=== PATIENT | female | born 1945 | race American Indian/Alaskan Native ===

== ENCOUNTER 2018-08-16 17:07 | Inpatient (IN) | payer MEDICARE ==
[2018-08-16 17:33] VITALS: BMI 32.3
[2018-08-16] MEDS ORDERED: Sodium Chloride 0.9% 500 ML IV STA (18:18)
[2018-08-16 18:52] LABS: BASO # 0.06 K/mm3 (0.0-2.0); BASO % 0.6 % (0.0-3.0); EOS # 0.7 (0.0-0.7); EOS % 7.6 % (1.5-5.0); LYMPH # 1.3 (1.2-3.4); LYMPH % 13.1 % (22.0-35.0); MEAN CELL VOLUME 81.3 fl (80.0-105.0); MEAN CORPUSCULAR HEMOGLOBIN 26.7 pg (25.0-35.0); MEAN CORPUSCULAR HGB CONC 32.9 g/dl (31.0-37.0); MEAN PLATELET VOLUME 8.3 fl (7.0-11.0); MONO # 0.4 (0.1-0.6); MONO % 3.6 % (1.0-6.0); RBC 3.74 10^6/uL (3.5-6.1); RED CELL DISTRIBUTION WIDTH 12.9 % (11.5-14.5); WHITE BLOOD COUNT 9.7 10^3/uL (4.5-11.0)
[2018-08-16 18:54] LABS: INR 1.15; PARTIAL THROMBOPLASTIN TIME 36.9 Seconds (26.9-38.3); PROTHROMBIN TIME 12.8 SECONDS (9.4-12.5)
[2018-08-16] MEDS ORDERED: Iohexol 240 (50 ml) ONE (18:54)
[2018-08-16 18:58] LABS: ALBUMIN 3.9 g/dL (3.0-4.8); ALT/SGPT 32 U/L (7-56); AST/SGOT 33 U/L (14-36); BLOOD UREA NITROGEN 33 mg/dL (7-21); CALCIUM 7.7 mg/dL (8.4-10.5); GFR NON-AFRICAN AMERICAN 13; LIPASE 227 U/L (23-300)
[2018-08-16 19:09] LABS: TROPONIN I < 0.01 ng/mL
--- NOTE | 2018-08-16 19:31 | ED PDOC ---
Arrival/HPI <Frank Torres - Last Filed: 08/17/18 00:07> - General Historian: Patient - History of Present Illness Narrative History of Present Illness (Text): 08/16/18 19:28 73 yo F w/ PMH of diabetes, asthma, hiatal hernia, CVA with residual L sided weakness, presents to the ER complaining of nausea, vomiting, associated with intermittent non-radiating pain to the epigastric area, present only when the patient feels she is about to vomit. 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 She adds that she has a h/o "bad kidneys," she follow up with a toll service observer, but is not on dialysis. Denies any fevers, chills, chest pain, shortness of breath, back pain, urinary symptoms, black stools, bloody stools, constipation, diarrhea, prior GI bleed. PMD Leonid Anderson <Melani Forman - Last Filed: 08/17/18 00:22> - General Chief Complaint: Abdominal Pain Time Seen by Provider: 08/16/18 17:09 Past Medical History - Infectious Disease Hx of Infectious Diseases: None - Cardiac Hx Cardiac Disorders: Yes Hx Hypertension: Yes - Pulmonary Hx Respiratory Disorders: No - Neurological Hx Neurological Disorder: Yes HX Cerebrovascular Accident: Yes (Left Sided Paralysis) - HEENT Hx HEENT Disorder: No - Renal Hx Renal Disorder: No - Endocrine/Metabolic Hx Endocrine Disorders: Yes Hx Diabetes Mellitus Type 2: Yes - Hematological/Oncological Hx Blood Disorders: No - Integumentary Hx Dermatological Disorder: No - Musculoskeletal/Rheumatological Hx Musculoskeletal Disorders: No - Gastrointestinal Hx Gastrointestinal Disorders: No - Genitourinary/Gynecological Hx Genitourinary Disorders: No - Psychiatric Hx Psychophysiologic Disorder: No Hx Substance Use: No <Melani Forman - Last Filed: 08/17/18 00:22> Family/Social History Family/Social History: No Known Family HX Smoking Status: Never Smoked Hx Alcohol Use: No Hx Substance Use: No <Melani Forman - Last Filed: 08/17/18 00:22> Allergies/Home Meds <Frank Torres - Last Filed: 08/17/18 00:07> <Melani Forman - Last Filed: 08/17/18 00:22> Allergies/Adverse Reactions: Allergies No Known Allergies Allergy (Verified 08/16/18 17:34) Review of Systems - Review of Systems Constitutional: absent: Fatigue, Fevers Respiratory: absent: SOB, Cough Cardiovascular: absent: Chest Pain, Palpitations, Edema Gastrointestinal: Abdominal Pain, Nausea, Vomiting. absent: Constipation, Diarrhea Genitourinary Female: absent: Dysuria, Frequency, Hematuria Musculoskeletal: absent: Arthralgias, Back Pain, Neck Pain Skin: Rash (+diffuse itchy rash x 1 week). absent: Pruritis, Skin Lesions Neurological: absent: Headache, Dizziness <Melani Forman - Last Filed: 08/17/18 00:22> Physical Exam Vital Signs Temp Pulse Resp BP Pulse Ox 08/16/18 22:00 71 18 148/75 96 08/16/18 19:22 75 18 154/82 H 96 08/16/18 17:34 98.3 F 82 18 175/82 H 96 <Frank Torres - Last Filed: 08/17/18 00:07> Vital Signs Temp Pulse Resp BP Pulse Ox 08/16/18 19:22 75 18 154/82 H 96 08/16/18 17:34 98.3 F 82 18 175/82 H 96 Temperature: Afebrile Blood Pressure: Hypertensive Pulse: Regular Respiratory Rate: Normal Appearance: Positive for: Well-Appearing, Non-Toxic, Comfortable Pain Distress: None Mental Status: Positive for: Alert and Oriented X 3 - Systems Exam Head: Present: Atraumatic, Normocephalic Pupils: Present: PERRL Extroacular Muscles: Present: EOMI Conjunctiva: Present: Normal Mouth: Present: Dry Neck: Present: Normal Range of Motion. No: Meningeal Signs, Lymphadenopathy Respiratory/Chest: Present: Clear to Auscultation, Good Air Exchange. No: Respiratory Distress, Accessory Muscle Use Cardiovascular: Present: Regular Rate and Rhythm, Normal S1, S2. No: Murmurs Abdomen: No: Tenderness, Distention, Peritoneal Signs Rectal: Present: Normal Rectal Tone, Other (Female EMT Marisel was present during the entire exam. ). No: Occult Blood, Rectal Tenderness, Gross Blood, Melena, Hemorrhoids Back: Present: Normal Inspection Upper Extremity: Present: Normal Inspection. No: Cyanosis, Edema Lower Extremity: Present: Normal Inspection. No: Edema Neurological: Present: GCS=15, CN II-XII Intact, Speech Normal Skin: Present: Warm, Dry, Normal Color. No: Rashes Psychiatric: Present: Alert, Oriented x 3, Normal Insight, Normal Concentration <Melani Forman - Last Filed: 08/17/18 00:22> Medical Decision Making - Lab Interpretations Lab Results: PT 12.8 SECONDS (9.4-12.5) H 08/16/18 18:27 INR 1.15 08/16/18 18:27 APTT 36.9 Seconds (26.9-38.3) 08/16/18 18: Troponin I < 0.01 ng/mL 08/16/18 18: Total Bilirubin 0.3 mg/dL (0.2-1.3) 08/16/18 18:27 AST 33 U/L (14-36) 08/16/18 18:27 ALT 32 U/L (7-56) 08/16/18 18:27 Alkaline Phosphatase 128 U/L (38-126) H 08/16/18 18:27 Total Protein 7.9 g/dL (5.8-8.3) 08/16/18 18:27 Albumin 3.9 g/dL (3.0-4.8) 08/16/18 18:27 Globulin 3.9 gm/dL 08/16/18 18:27 Albumin/Globulin Ratio 1.0 (1.1-1.8) L 08/16/18 18:27 Lipase 227 U/L (23-300) 08/16/18 18:27 Urine Color Light yellow (YELLOW) 08/16/18 21:26 Urine Appearance Sl cloudy (CLEAR) 08/16/18 21: Urine pH 6.5 (4.7-8.0) 08/16/18 21: Ur Specific [place] 1.015 (1.005-1.035) 08/16/18 21: Urine Protein 100 mg/dL (<30 mg/dL) H 08/16/18 21:26 Urine Glucose (UA) Negative mg/dL (NEGATIVE) 08/16/18 21: Urine Ketones Negative mg/dL (NEGATIVE) 08/16/18 21:26 Urine Blood Small (NEGATIVE) H 08/16/18 21:26 Urine Nitrate Negative (NEGATIVE) 08/16/18 21:26 Urine Bilirubin Negative (NEGATIVE) 08/16/18 21:26 Urine Urobilinogen 0.2 E.U./dL (<1 E.U./dL) 08/16/18 21:26 Ur Leukocyte Esterase Large [place]/uL (NEGATIVE) H 08/16/18 21:26 Urine RBC 2 - 5 /hpf (0-2) H 08/16/18 21:26 Urine WBC 15 - 20 /hpf (0-6) H 08/16/18 21:26 Ur Epithelial Cells 1 - 3 /hpf (0-5) 08/16/18 21:26 Urine Bacteria Many /hpf (NONE) 08/16/18 21:26 - RAD Interpretation Radiology Orders: 08/16/18 17:53 CHEST PORTABLE [RAD] Stat 08/16/18 18:17 ABD & PELVIS PO CONTRAST ONLY [CT] Stat - Medication Orders Current Medication Orders: Ciprofloxacin (Cipro 400mg/200ml Dsw) 400 mg in 200 mls @ 133.3 mls/hr IVPB S TAT STA; Protocol Stop: 08/17/18 00:46 Metronidazole (Flagyl) 500 mg in 100 mls @ 100 mls/hr IVPB STAT STA; Protocol Stop: 08/17/18 00:15 Last Admin: 08/16/18 23:40 Dose: 100 mls/hr eMAR Start Stop Document 08/16/18 23:40 AD (Rec: 08/17/18 00:07 [id number] Intravenous Solution Start Date 08/17/18 Start Time 23:40 Sodium Chloride (Sodium Chloride 0.9%) 1,000 mls @ 100 mls/hr IV .Q10H STA Stop: 08/17/18 09:17 Last Admin: 08/16/18 23:40 Dose: 100 mls/hr eMAR Start Stop Document 08/16/18 23:40 AD (Rec: 08/17/18 00:07 [id number]) Intravenous Solution Start Date 08/17/18 Start Time 23:40 Ondansetron HCl (Zofran Inj) 4 mg IVP Q6H PRN PRN Reason: Nausea/Vomiting Stop: 08/18/18 07:00 Discontinued Medications Sodium Chloride (Sodium Chloride 0.9%) 500 mls @ 500 mls/hr IV .Q1H STA Stop: 08/16/18 19:17 Last Admin: 08/16/18 18:36 Dose: 500 mls/hr eMAR Start Stop Document 08/16/18 18:36 [email or web address] (Rec: 08/16/18 18:36 [email or web address] [facility] [place] Intravenous Solution Start Date 08/16/18 Start Time 18:36 Ondansetron HCl (Zofran Inj) 4 mg IVP STAT STA Stop: 08/16/18 18:19 Last Admin: 08/16/18 18:36 Dose: 4 mg IVP Administration Document 08/16/18 18:36 [email or web address] (Rec: 08/16/18 18:36 [email or web address] [facility] [id number] Charges for Administration # of IVP Administrations 1 Ondansetron HCl (Zofran Inj) 4 mg IVP STAT STA Stop: 08/16/18 23:21 Last Admin: 08/16/18 23:30 Dose: 4 mg IVP Administration Document 08/16/18 23:30 AD (Rec: 08/17/18 00:07 AD [id number]) Charges for Administration # of IVP Administrations 1 Pantoprazole Sodium (Protonix Inj) 40 mg IVP STAT STA Stop: 08/16/18 18:19 Last Admin: 08/16/18 18:36 Dose: 40 mg IVP Administration Document 08/16/18 18:36 CAST (Rec: 08/16/18 18:[address]-ER-36) Charges for Administration # of IVP Administrations 1 <Frank Torres - Last Filed: 08/17/18 00:07> ED Course and Treatment: 08/16/18 19:32 Plan : - Labs - IV - Urinalysis - EKG - Chest X-ray - CT Abdomen/Pelvis CT w/ PO contrast - NS bolus - Zofran IV - Protonix IV 08/16/18 19:34 EKG : NSR at 75 bpm, no acute ST changes. Chest X-ray : No active disease. Labs reviewed : hgb 10, Na 130, bun 33, creat 3.4, Ca 7.7, Mg 1.5, UA +large LE with +wbcs in urine. Patient laying in bed comfortably, tolerating po contrast, has no complaints at this time. 08/16/18 22:50 CT Abdomen and Pelvis without IV; but with oral contrast agent. CLINICAL HISTORY: Epigastric pain with nausea and vomiting TECHNIQUE: Axial computed tomography images of the abdomen and pelvis without intravenous contrast. 829.57 mGy-cm CONTRAST: Without COMPARISON: None provided. FINDINGS: CARDIAC BASE: Extensive atherosclerotic vascular plaquing is seen in the LAD, left posterior circumflex and right coronary arteries. LUNG BASES: The lung bases appear clear. No pleural effusions are seen. LIVER: Unremarkable. GALLBLADDER AND BILE DUCTS: A 1.0 cm cholelith is seen in the gallbladder neck region. No biliary ductal dilatation is evident. PANCREAS: Unremarkable. SPLEEN: Unremarkable. ADRENAL GLANDS: Unremarkable. KIDNEYS, URETERS, AND BLADDER: The kidneys appear within normal limits. There is no hydronephrosis or hydroureter. No urinary calculi are seen. The urinary bladder is normal in size and configuration. There is mild bladder wall thickening noted which could indicate some component of chronic cystitis. STOMACH AND BOWEL: Unremarkable appearance of the stomach. No evidence of bowel obstruction. No evidence suggesting enteritis. There is mucosal wall thickening seen in the ascending and proximal half of the transverse colon which could indicate some colitis. APPENDIX: No evidence of acute appendicitis on CT examination. PERITONEUM: No free fluid. No free air. LYMPH NODES: No lymphadenopathy is evident. REPRODUCTIVE: The uterus is markedly enlarged with multiple solid heterogeneous lobulated masses containing mottled calcification compatible with multiple uterine fibroids. VASCULATURE: No evidence of abdominal aortic aneurysm. Extensive atherosclerotic vascular plaquing is noted. BONES: No aggressive appearing osseous lesion. No acute osseous pathology evident. There is evidence of disc desiccation and mild degenerative disc disease at L4- 5. IMPRESSION: 1. Findings suggestive of right hemicolitis. 2. Possible chronic cystitis. 3. A solitary 1.0 cm cholelith is seen in the gallbladder neck. 4. Uterine enlargement with multiple lobulated masses containing mottled calcification compatible with multiple degenerating uterine fibroids. 5. Extensive atherosclerotic vascular plaquing is noted; including the coronary arteries. On re-evaluation, patient is c/o nausea again, with minimal pain. On exam, patient is AAOx3 in no acute distress. Results and diagnosis explained to the patient. Advised that she will need further treatment and observation in the hospital which she agrees to. Cipro IV, flagyl IV and a 2nd dose of zofran IV ordered. 08/16/18 23:15 Case d/w Dr. Reed, request patient to be admitted with consults to Dr. Bo for GI. - Lab Interpretations Lab Results: PT 12.8 SECONDS (9.4-12.5) H 08/16/18 18:27 INR 1.15 08/16/18 18:27 APTT 36.9 Seconds (26.9-38.3) 08/16/18 18:27 Troponin I < 0.01 ng/mL 08/16/18 18:27 Total Bilirubin 0.3 mg/dL (0.2-1.3) 08/16/18 18:27 AST 33 U/L (14-36) 08/16/18 18:27 ALT 32 U/L (7-56) 08/16/18 18:27 Alkaline Phosphatase 128 U/L (38-126) H 08/16/18 18:27 Total Protein 7.9 g/dL (5.8-8.3) 08/16/18 18:27 Albumin 3.9 g/dL (3.0-4.8) 08/16/18 18:27 Globulin 3.9 gm/dL 08/16/18 18:27 Albumin/Globulin Ratio 1.0 (1.1-1.8) L 08/16/18 18:27 Lipase 227 U/L (23-300) 08/16/18 18:27 - RAD Interpretation Radiology Orders: 08/16/18 17:53 CHEST PORTABLE [RAD] Stat 08/16/18 18:17 ABD & PELVIS PO CONTRAST ONLY [CT] Stat - Medication Orders Current Medication Orders: Discontinued Medications Sodium Chloride (Sodium Chloride 0.9%) 500 mls @ 500 mls/hr IV .Q1H STA Stop: 08/16/18 19:17 Last Admin: 08/16/18 18:36 Dose: 500 mls/hr eMAR Start Stop Document 08/16/18 18:36 [email or web address] (Rec: 08/16/18 18:36 [email or web address] [facility] [id number]) Intravenous Solution Start Date 08/16/18 Start Time 18:36 Ondansetron HCl (Zofran Inj) 4 mg IVP STAT STA Stop: 08/16/18 18:19 Last Admin: 05/20/19 18:36 Dose: 4 mg IVP Administration Document 08/16/18 18:36 [email or web address] (Rec: 08/16/18 18:36 [facility] Charges for Administration # of IVP Administrations 1 Pantoprazole Sodium (Protonix Inj) 40 mg IVP STAT STA Stop: 08/16/18 18:19 Last Admin: 08/16/18 18:36 Dose: 40 mg IVP Administration Document 08/16/18 18:36 [email or web address] (Rec: 08/16/18 18:[email or web address]) Charges for Administration # of IVP Administrations 1 <Melani Forman - Last Filed: 08/17/18 00:22> - PA / EXPERIMENTAL WORKER / Resident Statement ANGEL has reviewed & agrees with the documentation as recorded. ANGEL has examined the patient and agrees with the treatment plan. <Frank Torres - Last Filed: 08/17/18 00:07> - PA / EXPERIMENTAL WORKER / Resident Statement ANGEL has reviewed & agrees with the documentation as recorded. <Melani Forman - Last Filed: 08/17/18 00:22> Disposition/Present on Arrival <Frank Torres - Last Filed: 08/17/18 00:07> - Present on Arrival Any Indicators Present on Arrival: No History of DVT/PE: No History of Uncontrolled Diabetes: No Urinary Catheter: No History of Decub. Ulcer: No History Surgical Site Infection Following: None - Disposition Have Diagnosis and Disposition been Completed?: Yes Disposition Time: 23:15 Patient Plan: Admission <Melani Forman - Last Filed: 08/17/18 00:22> - Disposition Diagnosis: Colitis, GI bleed Disposition: HOSPITALIZED Condition: STABLE
[2018-08-16 21:34] LABS: PH,URINE 6.5 (4.7-8.0); URINE BILIRUBIN NEGATIVE (NEGATIVE); URINE BLOOD SMALL (NEGATIVE); URINE GLUCOSE (UA) NEGATIVE (NEGATIVE); URINE LEUKOCYTE ESTERASE LARGE Leu/uL (NEGATIVE); URINE PROTEIN 100 mg/dL (<30 mg/dL); URINE UROBILINOGEN 0.2 E.U./dL (<1 E.U./dL)
[2018-08-16 21:40] LABS: URINE APPEARANCE SL CLOUDY (CLEAR); URINE COLOR LIGHT YELLOW (YELLOW)
[2018-08-16 21:49] LABS: URINE WBC 15 - 20 /hpf (0-6)
[2018-08-16 21:50] LABS: URINE BACTERIA MANY /hpf
[2018-08-16] MEDS ORDERED: metroNIDAZOLE IV 500 mg/100 ml 500 MG/100 ML BAG IVPB STA (23:16)
[2018-08-16] MEDS ORDERED: Ciprofloxacin 400mg/200ml D5W 400 MG/200 ML BAG IVPB STA (23:16)
[2018-08-16] MEDS ORDERED: Sodium Chloride 0.9% 1,000 ML IV STA (23:18)
--- NOTE | 2018-08-17 07:57 | RAD ---
Date of service: 08/16/2018 HISTORY: epigastric pain COMPARISON: No prior. TECHNIQUE: 1 view obtained. FINDINGS: LUNGS: No active pulmonary disease. PLEURA: No significant pleural effusion identified, no pneumothorax apparent. CARDIOVASCULAR: No aortic atherosclerotic calcification present. Normal cardiac size. No pulmonary vascular congestion. OSSEOUS STRUCTURES: No significant abnormalities. VISUALIZED UPPER ABDOMEN: Normal. OTHER FINDINGS: None. IMPRESSION: No active disease.
--- NOTE | 2018-08-17 08:40 | CT ---
Date of service: 08/16/2018 PROCEDURE: CT Abdomen and Pelvis without intravenous contrast HISTORY: epigastric pain COMPARISON: None. TECHNIQUE: Technique. Contrast dose: Radiation dose: Total exam DLP = 829.57 mGy-cm. This CT exam was performed using one or more of the following dose reduction techniques: Automated exposure control, adjustment of the mA and/or kV according to patient size, and/or use of iterative reconstruction technique. FINDINGS: LOWER THORAX: Unremarkable. LIVER: Unremarkable. No gross lesion or ductal dilatation. GALLBLADDER AND BILE DUCTS: Gallstones. PANCREAS: Unremarkable. No gross lesion or ductal dilatation. SPLEEN: Unremarkable. ADRENALS: Unremarkable. No mass. KIDNEYS AND URETERS: Unremarkable. Bilateral renal pelvic and ureteral dilatation, left greater than right no solid mass. VASCULATURE: Unremarkable. No aortic aneurysm. No aortic atherosclerotic calcification or mural plaque present. BOWEL: /in mild right-sided neural thickening of the colon; correlate for colitis. No obstruction. APPENDIX: Unremarkable. Normal appendix. PERITONEUM: Unremarkable. No free fluid. No free air. LYMPH NODES: Unremarkable. No enlarged lymph nodes. BLADDER: Mild nonspecific circumferential bladder wall thickening. REPRODUCTIVE: Markedly enlarged predominant left-sided calcified leiomyomatous uterus. BONES: No acute fracture. OTHER FINDINGS: None. IMPRESSION: Markedly enlarged predominant left-sided calcified leiomyomatous uterus.Bilateral renal pelvic and ureteral dilatation, left greater than right. Cholelithiasis. mild right-sided neural thickening of the colon; correlate for colitis. Mild nonspecific circumferential bladder wall thickening.
[2018-08-17 08:50] VITALS: RESP 20
[2018-08-17] MEDS ORDERED: HYDROmorphone 2 mg/ml ISec IVP PRN (10:50)
[2018-08-17] MEDS ORDERED: Dextrose 5%/0.45% NS 1,000 ML IV SCH (11:00)
--- NOTE | 2018-08-17 11:40 | CARD ---
APPROVED REPORT Date of service: 08/16/2018 EKG Measurement Heart [id number] <Conclusion> Normal sinus rhythm Normal ECG
[2018-08-17] MEDS ORDERED: Sodium Chloride 0.45% 1,000 ML IV SCH (13:15)
[2018-08-17 14:18] LABS: HDL CHOLESTEROL 26 mg/dL (29-60)
--- NOTE | 2018-08-17 14:24 | CON ---
DATE OF CONSULTATION: 08/17/2018 GASTROENTEROLOGY CONSULTATION REQUESTING PHYSICIAN: Dr. Reed. REASON FOR CONSULTATION/HISTORY OF PRESENT ILLNESS: I have been asked to see this 73-year-old female with a history of diabetes mellitus, CVA with residual left-sided weakness, who comes to the hospital with 2 days of vomiting, nausea, and abdominal pain after vomiting. The patient states that her symptoms started after eating a cupcake 2 days ago, which "tasted bad." She denies any diarrhea, rectal bleeding, fevers, or chills. She did have one episode of coffee-ground emesis. She currently denies any abdominal pain, nausea, or vomiting. She has not had any vomiting since coming to the hospital. She does have a history of chronic kidney disease. CT scan of the abdomen and pelvis shows bilateral dilatation of renal pelvis, large left-sided uterine myoma, and nonspecific mild mural thickening of the right colon. She denies any recent travel. PAST MEDICAL HISTORY: As above. Again, she has a history of diabetes mellitus for many years, CVA with residual left-sided weakness, asthma, hiatal hernia, chronic kidney disease. She also has a history of hypertension. PAST SURGICAL HISTORY: Unremarkable. SOCIAL HISTORY: She denies cigarette smoking or alcohol use. FAMILY HISTORY: Noncontributory. REVIEW OF SYSTEMS: Fourteen-point review of systems is notable for nausea, vomiting, and epigastric pain. MEDICATIONS: Medications at home include Ecotrin, clobetasol, Lasix, Tradjenta, glipizide, metoprolol, senna, omeprazole, vitamin B, vitamin C complex, sodium bicarb. PHYSICAL EXAMINATION: GENERAL: Obese female, lying in bed, in no acute distress. VITAL SIGNS: Reveal a temperature of 98, blood pressure 169/83, heart rate of 81. HEENT: Reveals sclerae to be white. Conjunctivae pale. Oral mucosa is moist. NECK: Supple. CHEST: Revealed lungs to be clear. HEART: Reveals a regular rate and rhythm. ABDOMEN: Obese, soft, nontender, and no mass. EXTREMITIES: Show no edema. She does have left-sided weakness. LABORATORY DATA: Reveals white blood cell count 9.7, hemoglobin 10. Chemistries reveal a sodium of 130, BUN 33, creatinine 3.4. AST, ALT, alk phos, total bilirubin are normal. Alkaline phosphatase is mildly elevated at 128. Lipase of 227. IMPRESSION: A 73-year-old female with 2 days of nausea, vomiting, and epigastric pain with a history of diabetes mellitus, cerebrovascular accident with residual left-sided weakness, chronic kidney disease, hypertension, who comes to the hospital with 2 days of nausea, vomiting, and epigastric pain associated with the vomiting. CT scan of the abdomen and pelvis does not show any evidence of intestinal obstruction. She was found to have gallstones. She does have a large uterine myoma. There is nonspecific mural thickening of the right colon. I suspect that the patient has either a gastroenteritis from food poisoning versus possibly gastroparesis from diabetes mellitus. She has not had any further nausea or vomiting since her hospitalization. She denies any melena or rectal bleeding. RECOMMENDATIONS: 1. I will start the patient on Reglan 5 mg IV before meals and at bedtime. 2. I will advance the patient to a moderate carbohydrate, low-fat, low-residue diet. 3. Continue PPI. The patient continues to tolerate diet. She can be discharged home with outpatient followup. Ranjit Bo MD
[2018-08-17 14:28] LABS: LDL CHOLESTEROL 38 mg/dL (0-129)
[2018-08-17] MEDS: metroNIDAZOLE IV 500 mg/100 ml 500 MG/100 ML BAG IVPB SCH ×2 (15:32→21:57)
[2018-08-17] MEDS: cefTRIAXone 1 gm 1 GM/100 ML BAG IVPB SCH (15:43)
[2018-08-17] MEDS: Sodium Chloride 0.45% 1,000 ML IV SCH ×2 (15:44→23:36)
[2018-08-17] MEDS ORDERED: HYDROmorphone 1 mg/ml ISec IVP PRN (16:11)
--- NOTE | 2018-08-17 20:43 | HP ---
DATE OF EXAM: 08/17/2018 HISTORY OF PRESENT ILLNESS: The patient is 73-year-old. The patient of covering for her. The patient state she was having intermittent abdominal pain for couple of days, the last night she vomited and had blood in that, so that prompted her to come to emergency room, was complaining of intermittent abdominal pain. Denies any black stools. The patient denies having any endoscopy and colonoscopy ever done in the past. PAST MEDICAL HISTORY: Significant for, 1. Noninsulin-dependant diabetes. 2. Hypertension. 3. History of CVA with left-sided weakness. 4. History of hiatal hernia. 5. History of asthma. ALLERGIES: SHE IS NOT ALLERGIC TO ANY MEDICATION. MEDICATIONS: At home, she is on aspirin 81 daily, clobetasol and Lasix. She is on Tradjenta, glipizide, metoprolol, omeprazole 40 mg daily, multivitamin and sodium bicarbonate 650 three times a day. SOCIAL HISTORY: She lives with her daughter and grandson. Denies smoking, drinking or alcohol use. She used to be smoker in remote past. PHYSICAL EXAMINATION: GENERAL: She looks comfortable. Denies any chest pain. No shortness of breath. No abdominal pain. VITAL SIGNS: She is afebrile. Pulse 84, respiration 20 and blood pressure 169/83. LUNGS: Bilateral fair airflow. No rhonchi or crackle. HEART: S1 and S2, audible. ABDOMEN: Soft and nontender. No rebound. No guarding. NEUROLOGIC: The patient is awake, alert and able to communicate. EXTREMITIES: Bilateral leg no edema. LABORATORY DATA: WBC 9.7, hemoglobin 10, hematocrit 30 and platelet 257. PT 12.8 and INR 1.15. Chemistry; sodium 130, potassium 4.7, chloride 91, CO2 of 21, BUN 33, creatinine 3.4, blood sugar of 130 and magnesium 1.5. Urinalysis shows large leukocyte and WBC's. She had CT scan of the abdomen and pelvis done that shows massively enlarged predominant left-sided calcified leiomyomatous uterus, bilateral renal pelvic and urethral dilatation left greater than the right, cholelithiasis and mild right-sided mural thickening of the colon probably colitis. ASSESSMENT: 1. Hemoptysis as per the patient at home. 2. Questionable gastrointestinal bleed. 3. Noninsulin-dependant diabetes. 4. Hypertension. 5. Hyperlipidemia. PLAN: Currently, the patient is on Cipro and the patient is currently on Rocephin and Flagyl. We will continue on IV fluid. Monitor her blood sugar. The patient had never had endoscopy and colonoscopy done. We will talk to Dr. Bo, if there is any plan for either or I will order for stool for C. diff also. We will followup CBC and CMP in a.m. Amy Reed MD
[2018-08-18] MEDS: metroNIDAZOLE IV 500 mg/100 ml 500 MG/100 ML BAG IVPB SCH (05:40)
[2018-08-18 07:13] LABS: BASO # 0.08 K/mm3 (0.0-2.0); EOS # 1.1 (0.0-0.7); EOS % 12.5 % (1.5-5.0); LYMPH # 1.6 (1.2-3.4); LYMPH % 18.5 % (22.0-35.0); MEAN CELL VOLUME 82.5 fl (80.0-105.0); MEAN CORPUSCULAR HEMOGLOBIN 26.7 pg (25.0-35.0); MEAN CORPUSCULAR HGB CONC 32.4 g/dl (31.0-37.0); MEAN PLATELET VOLUME 8.2 fl (7.0-11.0); MONO # 0.4 (0.1-0.6); MONO % 4.3 % (1.0-6.0); RBC 3.37 10^6/uL (3.5-6.1); WHITE BLOOD COUNT 8.4 10^3/uL (4.5-11.0)
[2018-08-18 07:42] LABS: ALBUMIN 3.5 g/dL (3.0-4.8); CALCIUM 7.1 mg/dL (8.4-10.5)
[2018-08-18] MEDS: Pantoprazole 40 mg EC Tab PO SCH (08:00)
--- NOTE | 2018-08-18 08:47 | PN ---
DATE: 08/18/2018 SUBJECTIVE: The patient is lying in bed. She feels much better. She has not had any vomiting. She denies any abdominal pain. She tolerated solid foods last night. PHYSICAL EXAMINATION: VITAL SIGNS: Temperature of 98.4, blood pressure of 190/76, heart rate of 114. HEENT: Reveals sclerae to be white. Conjunctivae pale. NECK: Supple. CHEST: Reveal lungs be clear. HEART: Exam reveals regular rate and rhythm. ABDOMEN: Obese, soft, nontender. EXTREMITIES: Show no edema. She has left-sided weakness. LABORATORY DATA: Hemoglobin of 9, white blood cell count 8.4, platelet count 229,000. Chemistries reveal sodium 128, BUN 32, creatinine 3.6. IMPRESSION: A 73-year-old female with a multiple comorbidities including longstanding diabetes mellitus, chronic kidney disease and hypertension who comes to the hospital with vomiting and abdominal pain. The patient states the symptoms began after she had a cut cake. She was found to have gallstones on CAT scan but I do not believe this is the cause of her symptoms. I believe she had fluid poisoning or gastroenteritis. She is anemic but I believe that this is anemia of chronic disease. Again, she is tolerating solid foods. RECOMMENDATIONS: The patient can be discharged with followup with her medical doctor, . I advised the patient that she should have an elective outpatient endoscopy and colonoscopy. Ranjit Bo MD
[2018-08-18] MEDS: cefTRIAXone 1 gm 1 GM/100 ML BAG IVPB SCH (09:28)
[2018-08-18] MEDS: Sodium Chloride 0.45% 1,000 ML IV SCH (09:30)
[2018-08-18] MEDS ORDERED: Sodium Chloride 0.45% 1,000 ML IV SCH (17:59)
--- NOTE | 2018-08-18 21:50 | PN ---
DATE: 08/18/2018 SUBJECTIVE: The patient is 73-year-old, seen and examined. Just had breakfast, and she states she is having grumbling and pain and cramps in her belly and feel like vomiting but did not throw up though. She was seen by GI earlier and was recommended to be discharged. PHYSICAL EXAMINATION: VITAL SIGNS: She is afebrile. Pulse 80, respirations 20, blood pressure 159/74. LUNGS: Bilateral fair airflow. No rhonchi or crackle. HEART: S1 and S2 audible. ABDOMEN: Soft and nontender. No rebound. No guarding. Except in the epigastric and periumbilical area, she has palpable discomfort. NEUROLOGIC: She is awake and alert. She is able to communicate. LABORATORY DATA: Sodium 128, potassium 5.1, chloride 97, CO2 of 20, BUN 32, creatinine 3.6, blood sugar 183, magnesium 1.5. Urine shows gram-negative rods. [place] count is more than 100,000. ASSESSMENT: 1. Abdominal pain probably secondary to colitis. 2. Pfm-sazcxta-rfeuboqtc diabetes. 3. Chronic kidney disease. 4. Hypertension. 5. Escherichia coli urinary tract infection. PLAN: The plan is currently the patient is on Flagyl. She is on Rocephin. We will continue that, cut down her fluids, give her Zofran. We will watch her for another 24 hours. If her symptoms subside, we will make discharge plan in a.m. Amy Reed MD
[2018-08-19 06:58] LABS: BASO # 0.07 K/mm3 (0.0-2.0); BASO % 0.8 % (0.0-3.0); EOS % 10.9 % (1.5-5.0); HEMOGLOBIN 9.6 g/dL (12.0-16.0); LYMPH # 1.4 (1.2-3.4); LYMPH % 15.4 % (22.0-35.0); MEAN CELL VOLUME 82.8 fl (80.0-105.0); MEAN CORPUSCULAR HGB CONC 32.7 g/dl (31.0-37.0); MEAN PLATELET VOLUME 8.4 fl (7.0-11.0); MONO # 0.3 (0.1-0.6); MONO % 3.6 % (1.0-6.0); RBC 3.55 10^6/uL (3.5-6.1); RED CELL DISTRIBUTION WIDTH 13.2 % (11.5-14.5); WHITE BLOOD COUNT 9.1 10^3/uL (4.5-11.0)
[2018-08-19 08:55] VITALS: PULSE 87; TEMP 98.5; O2SAT 97
[2018-08-19] MEDS: Pantoprazole 40 mg EC Tab PO SCH (09:19)
[2018-08-19] MEDS: cefTRIAXone 1 gm 1 GM/100 ML BAG IVPB SCH (09:20)
[2018-08-19 09:21] VITALS: BP 161/87
--- NOTE | 2018-08-19 13:22 | PN ---
DATE: 08/19/2018 SUBJECTIVE: The patient is lying in bed, comfortable. She had some nausea and abdominal cramps yesterday. She denies any nausea, vomiting or abdominal cramps today. She denies any diarrhea. She is found to have gram-negative rods in her urine. Stool for occult blood is negative. PHYSICAL EXAMINATION: VITAL SIGNS: Reveal temperature of 98.5, blood pressure 161/87, heart rate 87. HEENT: Reveals sclerae to be white. Conjunctivae pale. NECK: Supple. CHEST: Reveal lungs to be clear. HEART: Exam reveals regular rate and rhythm. ABDOMEN: Obese, soft, nontender. EXTREMITIES: Show no edema. LABORATORY DATA: From 08/19/2018, this morning hemoglobin up to 9.6. Chemistries reveal BUN 32, creatinine 3.6, blood sugar is 183. IMPRESSION: A 73-year-old female admitted to the hospital with nausea, vomiting associated with epigastric pain, gallstones, chronic kidney disease, anemia of chronic disease and found to have urinary tract infection. I suspect her symptoms are related to gastroenteritis versus possible gastroparesis related to her diabetes mellitus. She has a urinary tract infection and again anemia of chronic disease. Stool for occult blood is negative. RECOMMENDATIONS: 1. Continue PPI. 2. Low-fat, low-residue diet. 3. The patient was instructed to have an outpatient elective endoscopy and colonoscopy. She is to follow up with her medical doctor,. Dr. Jaquez. Ranjit Bo MD
--- NOTE | 2018-08-19 23:34 | DS ---
HISTORY OF PRESENT ILLNESS: The patient is 73 years old, seen and examined, lying in bed, seems to be comfortable. She came in with intermittent abdominal pain, was kept n.p.o. and was given IV fluid. CT scan shows colitis, where had been on IV antibiotics, is starting to do well, was given food and she tolerated without any nausea, vomiting or diarrhea or abdominal pain, so she is being discharged home today. The patient was seen by Dr. Bo and he also agreed with plan. Once the patient's symptoms subside, she was advised to do an endoscopy and colonoscopy. PAST MEDICAL HISTORY: Significant for; 1. Noninsulin-dependent diabetes. 2. Chronic kidney disease. 3. Hypertension. 4. Chronic anemia. PHYSICAL EXAMINATION: GENERAL: She is awake and alert, able to communicate. VITAL SIGNS: She is afebrile. Pulse 87, respirations 20, blood pressure 161/80. LUNGS: Bilateral fair airflow. No rhonchi or crackles. HEART: S1 and S2 audible. ABDOMEN: Soft and nontender. No rebound. No guarding. NEUROLOGIC: The patient is awake and alert, able to communicate. EXTREMITIES: Bilateral leg, no edema. LABORATORY DATA: WBC is 9.1, hemoglobin 9.6, hematocrit 29.4, platelet 247. Chemistry; sodium 128, potassium 5.1,chloride 97, CO2 of 20, BUN 32, creatinine 3.6, blood sugar of 183. Stool Hemoccult is negative. She has urine culture that was positive for gram negative mag. I explained to the patient at length since we do not sensitivity back yet, she needs to stay another night, but the patient was adamant, she wants to go home today. She states "my family is expecting me home." She also refused to have repeat blood work done. She was told that her potassium is high and so is her sodium, it is dangerous to leave without getting checked. She was adamant and did not want to give any blood specimen. ASSESSMENT: 1. Questionable upper gastrointestinal bleed. 2. Colitis. 3. Chronic kidney disease. 4. Hypertension. 5. Hyperlipidemia. PLAN: The patient is being discharged home on Cipro 250 mg twice a day for 5 days. She is advised to follow up with Dr. Jaquez. She will get endoscopy and colonoscopy as outpatient. Amy Reed MD [facility] # [id number]
== END 2018-08-19 15:44 | disposition home or self-care (01) | DRG 392 ==
LOC: ED 17:07 → ERH 23:17 → 3RSO 08-17 00:37
PROVIDERS: ADMIT Internal Medicine; ATTEND Internal Medicine
DX: K52.9 Noninfective gastroenteritis and colitis, unspecified (principal); I69.354 Hemiplegia and hemiparesis following cerebral infarction affecting left non-dominant side; N39.0 Urinary tract infection, site not specified; B96.20 Unspecified Escherichia coli [E. coli] as the cause of diseases classified elsewhere; E11.43 Type 2 diabetes mellitus with diabetic autonomic (poly)neuropathy; K31.84 Gastroparesis; I12.9 Hypertensive chronic kidney disease with stage 1 through stage 4 chronic kidney disease, or unspecified chronic kidney disease; E11.22 Type 2 diabetes mellitus with diabetic chronic kidney disease; N18.9 Chronic kidney disease, unspecified; K80.20 Calculus of gallbladder without cholecystitis without obstruction; D25.9 Leiomyoma of uterus, unspecified; D63.8 Anemia in other chronic diseases classified elsewhere; E78.5 Hyperlipidemia, unspecified; J45.909 Unspecified asthma, uncomplicated; K44.9 Diaphragmatic hernia without obstruction or gangrene; Z87.891 Personal history of nicotine dependence; Z79.84 Long term (current) use of oral hypoglycemic drugs